=== PATIENT | male | born 1960 | race Caucasian/White ===

== ENCOUNTER → 2018-12-12 | Outpatient (CLI) | payer OTHER, SELFPAY ==
[2018-12-12 14:39] VITALS: BMI 39.9
--- NOTE | 2018-12-12 14:56 | RAD_ITS ---
STUDY: X-RAY - LEFT FOOT CLINICAL: Posterior ankle pain. TECHNIQUE: 3 view(s) of the foot. COMPARISON: None. FINDINGS: There are small posterior and plantar calcaneal enthesophytes. Normal talus and tarsal bones. Normal visualized subtalar, talonavicular, calcaneocuboid, tarsal and tarsometatarsal articulations. There is enthesopathy at the base of the fifth metatarsal. There is mild joint space narrowing of the metatarsophalangeal joint of the great toe. Normal tibial and fibular sesamoid bones. Normal interphalangeal joint of the great toe. Normal phalanges of the great toe. Normal second through fifth metatarsophalangeal joints. Normal interphalangeal joints and phalanges of the lesser toes. The soft tissue structures are unremarkable. RAD/Foot min 3 Views IMPRESSION: Mild arthrosis of the first metatarsophalangeal joint. Mild calcaneal enthesopathy. Enthesopathy at the base of the fifth metatarsal. Electronically Signed: Elmer Malcolm MD at 15:42 EDT Tel , Service support ,
== END | disposition home or self-care (01) ==
LOC: HPRAD 14:56
PROVIDERS: Family Provider Family Medicine; PCP Family Medicine; Referring Provider Orthopaedic Surgery; Visit Provider Orthopaedic Surgery
DX: M25.572 Pain in left ankle and joints of left foot (principal)
CPT/HCPCS: 73630

== ENCOUNTER 2019-11-02 12:43 | Emergency (ER) | payer OTHER, SELFPAY ==
[2018-12-12 14:39] VITALS: BMI 39.9
[2019-11-02 12:44] VITALS: BP 153/97; PULSE 84; RESP 20; TEMP 36.9; O2SAT 93; BMI 39.9
[2019-11-02] MEDS: 0.9% Normal Saline 1,000 ML 1000 ML IV (13:30)
[2019-11-02 13:40] LABS: Absolute Lymphocyte Count 1.92 X10^3/uL (0.83-4.51); Absolute Neutrophil Count 2.7 X10^3/uL (2.0-7.7); Basophil# 0.02 X10^3/uL; Basophil% 0.4 % (0-1); Eosinophil# 0.01 X10^3/uL; Eosinophils% 0.2 % (0-5); Hematocrit 51.4 % (40-54); Hemoglobin 16.9 g/dL (13.0-16.5); Lymphocyte # 1.92 X10^3/ul (4.0); Mean Corp Hgb Conc 32.9 g/dL (32-36); Mean Corpuscular Hgb 29.3 pg (27.0-32.0); Mean Corpuscular Volume 89.1 fL (80-94); Monocyte# 0.56 X10^3/uL; Monocyte% 10.8 % (0-10); NRBC Flagged by Analyzer 0 % (0-5); Neutrophil # 2.67 X10^3/uL (2.7-7.7); Neutrophil % 51.4 % (47-70); Platelet Count 109 K/mm3 (150-450); RBC Distribution Width CV 13.7 % (11.6-14.6); Red Blood Count 5.77 M/mm3 (4.6-6.2); White Blood Count 5.2 K/mm3 (4.4-11.0)
--- NOTE | 2019-11-02 13:40 | RAD_ITS ---
STUDY: X-RAY CHEST REASON FOR EXAM: Male, 59 years old. FEVER,COUGH,SOB, CHILLS AND BODY ACHES FOR PAST 7-8 DAYS TECHNIQUE: Single AP portable view of the chest. COMPARISON: None. FINDINGS: EKG electrodes are seen. Mild increased markings in the left infrahilar region suggestive of atelectasis and/or infiltrate. There is no demonstrated pleural abnormality. Normal size heart. Normal mediastinum and karla. Normal visualized pulmonary arteries. Normal visualized aortic arch and descending thoracic aorta. There are diffuse degenerative changes of the visualized thoracic spine. Normal visualized ribs, clavicles, and shoulders. There is no demonstrated abnormality of the visualized soft tissue structures of the upper abdomen. RAD/Chest 1 View (Portable) IMPRESSION: Increased markings in the left infrahilar region suggestive of atelectasis and/or early infiltrate Electronically Signed: Pete Rojo, at 13:53 EDT , Service support ,
[2019-11-02 13:56] LABS: ALB/GLOB Ratio 0.9 RATIO (0.9-2.4); AST(SGOT) 44 U/L (15-37); Alanine Aminotransfer ALT/SGPT 49 U/L (16-61); Albumin, Serum 3.4 g/dL (3.2-5.0); Alkaline Phosphatase 54 U/L (45-117); Anion Gap 4 (5-15); BUN 12 mg/dL (7-18); BUN/Creat Ratio 11.2 RATIO (10-20); Calcium,Total 8.7 mg/dL (8.5-10.1); Chloride 105 mmol/L (98-107); Creatinine, Serum 1.07 mg/dL (0.70-1.30); EST Glomerular Filtration Rate 75 mL/min (>60); Est Glom Filt Rate - Afr Amer 90 mL/min (>60); Estimated Creatinine Clearance 86.65 ml/min; Globulin 3.9 g/dL (2.2-4.2); Glucose 110 mg/dL (74-106); Potassium 3.3 mmol/L (3.5-5.1); Protein, Total 7.3 g/dL (6.4-8.2); Sodium Level 139 mmol/L (136-145)
[2019-11-02 14:04] LABS: Lactic Acid 0.9 mmol/L (0.4-1.9)
[2019-11-02 14:07] VITALS: BP 143/84; PULSE 71; RESP 18; TEMP 36.9; O2SAT 94
[2019-11-02 14:24] LABS: Bacteria 0 SEEN /hpf (None Seen); Mucous, Urine 0 SEEN /hpf (<or=2+); Red Blood Cells-Urine 0 SEEN /hpf (0-5); Squamous Epithelial Cells - UA 0 SEEN /hpf (0-5); White Blood Cells 0 SEEN /hpf (0-5)
[2019-11-02 14:33] LABS: Color, Urine Yellow (Yellow); Glucose, Dipstick Normal (Normal); Ketone-Dipstick Negative (Negative); Leukocyte Esterase-Dipstick Negative /ul (Negative); Nitrite-Dipstick Negative (Negative); Occult Blood-Urine 10 /ul (Negative); Protein-Dipstick 30 mg/dl (Negative); Urine Bilirubin Dipstick Negative (Negative); Urine Clarity Sl. Cloudy (Clear); Urine Urobilinogen 1 mg/dl (Normal); Urine pH 6.5 (5.0 - 8.0)
--- NOTE | 2019-11-02 14:39 | ED.VISSUMM ---
- ER Visit Summary Date of Service: 11/02/19 Chief Complaint: Cough History of Present Illness: The patient is a [address] garay. He reports he has a cough began 8 days ago. It is productive a little bit of sputum. No blood in his sputum. He has had chills, but no fever. No sore throat, chest pain, or difficulty breathing. He does complain of myalgias and a minimal headache. Patient reports that his who is a executive secretary social welfare has been doing everything by telehealth had similar symptoms, but hers have completely resolved and she is back to work. He states that he just cannot kick this. He denies any known exposure to coronavirus. They have been self isolating. Physical Examination: Vitals: Stable. Afebrile. General: Well-nourished and well-developed. Head: Normocephalic atraumatic. Neck: Supple, no lymphadenopathy. No JVD. Nontender. Cardiovascular: Regular rate and rhythm. No murmurs. Respiratory: No respiratory distress. Clear to auscultation bilaterally. Abdominal: Soft, nontender, nondistended, normal bowel sounds. No guarding, rebound, or peritoneal signs. Back: Nontender. Extremities: Nontender, no edema. Skin: Normal color, no rash. Neurologic: Alert and oriented ?3. Cranial nerves II through XII are intact. Normal strength and sensation. Psych: Normal affect. Test Results: CBC shows a hemoglobin of 16.9 with platelets 109 and monocytes of 11. Chem-7 shows a potassium 3.3 and glucose 110. LFTs show an AST of 44. Lactic acid is 0.9. Chest x-ray is read by the radiologist as increased markings left infrahilar region atelectasis and/or infiltrate. Clinically I do not think that the patient has pneumonia. UA is normal. Emergency Department Course and Treatment: Patient is resting comfortably. Treatment Plan: I discussed the findings with the patient. He does have a prolonged cough. He is given a first dose of Zithromax and will be discharged on Zithromax. He does understand that the test for COVID is not back yet and there is the possibility that this is what he has. He is instructed to continue to quarantine. Follow-up with his primary care physician in 10 days if not improving. Return to the emergency department for any worsening symptoms. Disposition: To home in improved and stable condition. Impression: 1. URI. This note was generated with [employer] dictation software. It may contain incorrect words, spelling, and punctuation that were not noted in review of the chart prior to signing ED Disposition - Plan for ED Patient: Instructions: ED Upper Resp Infec Abx Tx Prescriptions: Azithromycin [Zithromax] 250 mg PO DAILY #4 tablet Referrals: Raj Waldron MD [Primary Care Provider] - 10-14 Days if not better
[2019-11-02 15:28] VITALS: BP 142/98; PULSE 68; RESP 16; O2SAT 98
[2019-11-02] MEDS: Azithromycin 250 MG Tablet 500 MG PO (15:29)
== END 2019-11-02 15:36 | disposition home or self-care (01) ==
LOC: ED 13:48
PROVIDERS: Emergency Provider Emergency Medicine; PCP Family Medicine
DX: J06.9 Acute upper respiratory infection, unspecified (principal)
CPT/HCPCS: 71045; 80053; 81001; 83605; 85025; 87635; 96360; 99285; G2023; J7030; A4216; U0003

== ENCOUNTER 2020-05-25 11:38 | Emergency (ER) | payer OTHER, SELFPAY ==
[2020-05-25 11:39] VITALS: BP 166/118; PULSE 69; RESP 18; TEMP 35.3; O2SAT 92; BMI 41.9
--- NOTE | 2020-05-25 12:10 | EKG12_ITS ---
Test Reason : Blood Pressure : / mmHG Vent. Rate : 066 BPM Atrial Rate : 066 BPM P-R Int : 156 ms QRS Dur : 092 ms QT Int : 444 ms P-R-T Axes : -04 047 066 degrees QTc Int : 465 ms Normal sinus rhythm Normal ECG Confirmed by ULISSES MENDEZ, CARON ([id number]), editor producer CLIVE RIOS ([id number]) on 05/26/2020 10:34:39 AM Referred By: JORGE Confirmed By:CARON GTZ MD
--- NOTE | 2020-05-25 12:10 | RAD_ITS ---
STUDY: X-RAY CHEST REASON FOR EXAM: Male, 60 years old. syncope TECHNIQUE: Frontal view of the chest COMPARISON: 02 November 2019 FINDINGS: The lungs are clear and expanded. There is no demonstrated pleural abnormality. Normal size heart. Normal mediastinum and karla. Normal visualized pulmonary arteries. Normal visualized aortic arch and descending thoracic aorta. Normal visualized thoracic spine. Normal visualized ribs, clavicles, and shoulders. There is no demonstrated abnormality of the visualized soft tissue structures of the upper abdomen. RAD/Chest 1 View (Portable) IMPRESSION: Normal x-ray examination of the chest. Electronically Signed: Yoshi Luis, at 13:25 EST Tel , Service support ,
--- NOTE | 2020-05-25 12:10 | RAD_ITS ---
STUDY: X-RAY - LEFT CLAVICLE REASON FOR EXAM: Male, 60 years old. fall, pain TECHNIQUE: 2 view(s) of the clavicle. COMPARISON: None. FINDINGS: Normal clavicle. Normal acromioclavicular articulation. Normal visualized sternoclavicular articulation. Normal visualized pulmonary apex. RAD/Clavicle IMPRESSION: Normal x-ray examination of the clavicle. Electronically Signed: Yoshi Luis, at 13:24 EST Tel , Service support ,
--- NOTE | 2020-05-25 12:26 | ED.DCSUM_ITS ---
- ER Visit Summary Date of Service: 05/25/20 Chief Complaint: Fall History of Present Illness: The patient is a 60 M presents after a fall that occurred today. Patient states he was in the shower when he fell. Patient states he thinks he may have passed out. Patient states he has a history of cardiogenic syncope but has not had any episodes in the past 3 to 4 years. Patient states he was out for approximately 2 to 3 seconds. Patient states he felt lightheaded prior to falling. Patient denies any chest pain or shortness of breath. Patient states his pain is mostly over his left clavicle and shoulder area. Patient describes a sharp and throbbing. Patient states it is worse with movement especially with adduction. Patient denies any paresthesias or weakness. Physical Examination: Vital signs are stable except for an elevated blood pressure of 166/118. Patient is afebrile. Patient is in no acute distress. Oral mucosa is pink and moist. Neck is supple. Trachea is midline. There is no JVD. Heart was regular rate and rhythm. Lungs are clear and equal bilatera lly. There is good respiratory effort. Abdomen is soft. Bowel sounds are normal. There is no tenderness. Cranial nerves II through XII are intact. There are no focal motor or sensory deficits noted. Musculoskeletal exam reveals tenderness over the left clavicle and acromioclavicular joint. There is no obvious deformity noted. Range of motion was limited in all motions of the left shoulder secondary to pain. Radial pulses are equal bilaterally. Test Results: EKG was obtained. On my interpretation, there is a normal sinus rhythm with a rate of 66. There are no acute ST or T wave changes. Portable 1 view chest x-ray was obtained. On my interpretation, lung sage are clear. There is normal cardiac silhouette. Bony thorax is normal. There is no acute process noted. Radiologist also interpreted the x-ray and agrees. X-rays of the left clavicle were obtained. There are 2 views. On my interpretation, there is no acute fracture noted. There is no fracture of the visualized portion of the proximal humerus. There is no dislocation of the shoulder. There is no pneumothorax. Radiologist also interpreted the x-ray and agrees. CBC shows a hemoglobin of 18.1. Comprehensive metabolic profile was essentially within normal limits. Troponin was normal. CTA of the chest was obtained. There is no evidence of large central pulmonary embolism or aortic dissection. It was a suboptimal study however. This was interpreted by the radiologist and reviewed by myself. Emergency Department Course and Treatment: Patient was feeling better on reevaluation. Patient was advised of his findings. Patient was instructed to use ice to his left shoulder. Patient was instructed to take Tylenol or ibuprofen as needed for pain. Patient was instructed to follow-up with his primary care physician in 5 to 7 days. Patient understood and was agreeable with the plan. All questions were answered. Disposition: Discharge home Impression: 1. Left shoulder contusion 2. Syncope This note was generated with [email or web address] dictation software. It may contain incorrect words, spelling, and punctuation that were not noted in review of the chart prior to signing ED Disposition - Plan for ED Patient: Disposition: Home or Assisted Living Diagnosis: Contusion of left shoulder, initial encounter, Syncope and collapse Instructions: ED Fainting, Uncertain Cause, ED Contusion, Upper Extremity Referrals: Raj Waldron MD [Primary Care Provider] - 5-7 Days
[2020-05-25 12:59] LABS: Absolute Lymphocyte Count 2.14 X10^3/uL (0.83-4.51); Absolute Neutrophil Count 4.2 X10^3/uL (2.0-7.7); Basophil# 0.04 X10^3/uL; Basophil% 0.6 % (0-1); Eosinophils% 1.4 % (0-5); Hematocrit 53.2 % (40-54); Lymphocyte # 2.14 X10^3/ul (4.0); Lymphocyte % 30.5 % (19-41); Mean Corpuscular Hgb 29.9 pg (27.0-32.0); Mean Corpuscular Volume 87.9 fL (80-94); Mean Platelet Vol. 11.7 fl (6.2-12.0); Monocyte# 0.53 X10^3/uL; Monocyte% 7.5 % (0-10); NRBC Flagged by Analyzer 0 % (0-5); Neutrophil # 4.19 X10^3/uL (2.7-7.7); Neutrophil % 59.7 % (47-70); Platelet Count 162 K/mm3 (150-450); RBC Distribution Width CV 13.1 % (11.6-14.6); RBC Distribution Width SD 42.4 fl (35.1-43.9); Red Blood Count 6.05 M/mm3 (4.6-6.2)
[2020-05-25 13:00] LABS: Hemoglobin 18.1 g/dL (13.0-16.5)
[2020-05-25 13:05] LABS: ALB/GLOB Ratio 1.1 RATIO (0.9-2.4); AST(SGOT) 29 U/L (15-37); Alanine Aminotransfer ALT/SGPT 66 U/L (16-61); Albumin, Serum 4.1 g/dL (3.2-5.0); Alkaline Phosphatase 54 U/L (45-117); Anion Gap 6 (5-15); BUN 16 mg/dL (7-18); BUN/Creat Ratio 17.8 RATIO (10-20); Chloride 108 mmol/L (98-107); EST Glomerular Filtration Rate 91 mL/min (>60); Est Glom Filt Rate - Afr Amer 110 mL/min (>60); Estimated Creatinine Clearance 101.71 ml/min; Globulin 3.6 g/dL (2.2-4.2); Glucose 93 mg/dL (74-106); Protein, Total 7.7 g/dL (6.4-8.2); Sodium Level 139 mmol/L (136-145)
--- NOTE | 2020-05-25 13:16 | CT_ITS ---
STUDY: CTA CHEST REASON FOR EXAM: Male, 60 years old. Syncope RADIATION DOSAGE (If Supplied By Facility): CTDIvol = ( 14.82 ) mGy, DLP = ( 733.60 ) mGycm TECHNIQUE: The examination was performed with the intravenous administration of 100mL Isovue 370. Post-processing of the angiographic images was performed, with multiplanar reformation and 3D reconstruction. Individualized dose optimization techniques were used for this CT. COMPARISON: None. FINDINGS: Examination is technically limited due to poor contrast enhancement in the pulmonary arteries with low attenuation contrast and patient''s large body habitus resulting in increased image noise and decreased resolution. Central large pulmonary arteries are assessable while segmental arteries are not. There is no large central pulmonary embolism. Pulmonary artery and aorta are normal caliber. Lungs have mosaic attenuation, likely atelectasis.. There is no pneumothorax, pulmonary edema or pleural effusions. Mediastinal contents are normal. Osseous structures are intact. Abdominal structures are unremarkable. CT/CTA Chest W/WO Contrast IMPRESSION: 1. Technically suboptimal study. 2. No large central pulmonary embolism. 3. Refer to ultrasonography of the lower extremity venous system for further risk stratification. 4. Presumed atelectasis. Electronically Signed: Yoshi Luis, at 14:31 EST Tel , Service support ,
[2020-05-25 15:28] VITALS: BP 144/93; PULSE 71; RESP 14; TEMP 36.6; O2SAT 99
[2020-05-26 13:22] LABS: Pathologist Review Reviewed
== END 2020-05-25 15:29 | disposition home or self-care (01) ==
PROVIDERS: Emergency Provider Emergency Medicine; PCP Family Medicine
DX: S40.012A Contusion of left shoulder, initial encounter (principal); R55 Syncope and collapse; W18.2XXA Fall in (into) shower or empty bathtub, initial encounter; Y93.9 Activity, unspecified; Y92.9 Unspecified place or not applicable; E66.9 Obesity, unspecified
CPT/HCPCS: 71045; 71275; 73000; 80053; 84484; 85025; 93005; 99285; Q9967; A4216

== ENCOUNTER → 2023-02-11 | Outpatient (CLI) | payer OTHER, SELFPAY ==
[2023-02-11 15:08] LABS: Absolute Lymphocyte Count 2.58 X10^3/uL (0.83-4.51); Absolute Neutrophil Count 3.4 X10^3/uL (2.0-7.7); Basophil# 0.05 X10^3/uL; Basophil% 0.7 % (0-1); Eosinophil# 0.16 X10^3/uL; Eosinophils% 2.3 % (0-5); Hematocrit 55.4 % (40-54); Lymphocyte # 2.58 X10^3/ul (0.83-4.51); Lymphocyte % 37.9 % (19-41); Mean Corp Hgb Conc 32.7 g/dL (32-36); Mean Corpuscular Hgb 29.5 pg (27.0-32.0); Mean Corpuscular Volume 90.4 fL (80-94); Mean Platelet Vol. 12.2 fl (6.2-12.0); Monocyte# 0.64 X10^3/uL; Monocyte% 9.4 % (0-10); NRBC Flagged by Analyzer 0 % (0-5); Neutrophil # 3.37 X10^3/uL (2.7-7.7); Neutrophil % 49.6 % (47-70); Platelet Count 178 K/mm3 (150-450); RBC Distribution Width CV 13.3 % (11.6-14.6); RBC Distribution Width SD 44.4 fl (35.1-43.9); Red Blood Count 6.13 M/mm3 (4.6-6.2); White Blood Count 6.8 K/mm3 (4.4-11.0)
[2023-02-11 15:15] LABS: Hemoglobin 18.1 g/dL (13.0-16.5)
[2023-02-11 15:31] LABS: Vitamin B12 573 pg/mL (211-911); Vitamin D,25 Hydroxy 19.3 ng/mL
[2023-02-11 15:34] LABS: ALB/GLOB Ratio 1.1 RATIO (0.9-2.4); AST(SGOT) 21 U/L (15-37); Alanine Aminotransfer ALT/SGPT 44 U/L (16-61); Alkaline Phosphatase 48 U/L (45-117); Anion Gap 4 (5-15); BUN 10 mg/dL (7-18); BUN/Creat Ratio 9.6 RATIO (10-20); Calcium,Total 9.2 mg/dL (8.5-10.1); Chloride 106 mmol/L (98-107); Cholesterol 259 mg/dL (200); Creatinine, Serum 1.04 mg/dL (0.70-1.30); EST Glomerular Filtration Rate 76 mL/min (>60); Est Glom Filt Rate - Afr Amer 92 mL/min (>60); Globulin 3.8 g/dL (2.2-4.2); Glucose 84 mg/dL (74-106); High Density Lipoprotein 44 mg/dL; Protein, Total 7.8 g/dL (6.4-8.2); Sodium Level 138 mmol/L (136-145); T4 Free Direct 0.82 ng/dL (0.76-1.46); Thyroid Stim Hormone (TSH) 2.47 uIU/mL (0.358-3.74); Triglycerides 114 mg/dL; Very Low Density Lipoprotein 23 mg/dL (5-40)
[2023-02-11 17:04] LABS: Ferritin 147 ng/mL (26-388); Iron 138 ug/dL (65-175); Iron Binding Capacity,Total 391 ug/dL (250-450); PERCENT IRON SATURATION 35.3 % (15.0-55.0)
[2023-02-13 08:07] LABS: Transferrin 277 mg/dL (177-329)
[2023-02-14 13:15] LABS: Pathologist Review Reviewed
== END | disposition home or self-care (01) ==
LOC: MFPLAB 12:01
PROVIDERS: PCP Family Medicine; Visit Provider Family Medicine
DX: D75.1 Secondary polycythemia (principal)
CPT/HCPCS: 36415; 80053; 80061; 82306; 82607; 82728; 83540; 83550; 84439; 84443; 84466; 85025

== ENCOUNTER 2023-02-24 08:17 | Emergency (ER) | payer OTHER, SELFPAY ==
[2023-02-24 08:19] VITALS: BP 171/97; PULSE 73; RESP 16; TEMP 36.6; O2SAT 99
--- NOTE | 2023-02-24 09:11 | VDLE_ITS ---
Reason For Study: pain Procedure LEFT This is a venous duplex using B-mode, color GSV is normal. flow and spectral Doppler. CFV is compressible, spontaneous, phasic, Exam performed portable in ED. competent, and demonstrates normal The exam was abbreviated due to the COVID 19 augmentation. protocol. FV is compressible, spontaneous, phasic, The exam was diagnostic. competent and demonstrates normal A preliminary report was called and/or faxed augmentation. to Dr. Ramirez. POP V is compressible, spontaneous, phasic, competent and demonstrates normal augmentation. T/P Trunk is compressible. PTV is compressible. LT PerV is compressible. VL/Venous Duplex US, Unilateral Interpretation Summary Deep veins of the left lower extremity are patent and compressible segmentally. There is no evidence of left lower extremity deep vein thrombosis. The left great saphenous vein marcelle ears patent and compressible segmentally. Ordering Physician: Uriel Ramirez Performed By: Hai Stone RVT
--- NOTE | 2023-02-24 09:20 | RAD_ITS ---
STUDY: X-RAY - LEFT KNEE REASON FOR EXAM: Male, 62 years old. Pain. TECHNIQUE: 4 views of the left knee. COMPARISON: None. FINDINGS: Normal visualized distal femur. Normal visualized proximal tibia and fibula. Normal proximal tibiofibular articulation. There is no demonstrated fracture. Normal medial femorotibial compartment. Normal lateral femorotibial compartment. Normal patellofemoral articulation. There is tiny osseous spurring at the superior and inferior poles of the patella. There is a small joint effusion. The soft tissue structures are unremarkable. RAD/Knee 4 or More Views IMPRESSION: Small joint effusion. No demonstrated fracture. Electronically Signed: Devin Jo MD at 9:37 EDT ,
--- NOTE | 2023-02-24 09:20 | EDS_ITS ---
HPI History of Present Illness Chief Complaint: Lower Extremity Injury Informant: patient and spouse/S.O. Narrative Narrative: Very pleasant 62-year-old male presenting to the emergency department with 1 week of posterior left knee pain. Patient states that he began to feel like he tweaked his knee last Tuesday. It is progressively gotten worse. He notes the pain to be in the lateral and posterior. He states he is never felt any swelling or redness. He denies any known trauma. Last night getting into bed he felt like something may have popped. He felt some discomfort in the very proximal calf. He denies any prior knee surgery or trauma. He has not had pain in the knee recently. Has not had any difficulty with stairs until the last couple of days when it is painful even to bear any weight. Has been using some crutches [facility] Home Medications azithromycin 250 mg tablet 250 mg PO DAILY #4 tabs 11/02/19 [Rx Last Taken Unknown] Allergy/AdvReac Type Severity Reaction Status Date / Time No Known Allergies Allergy Verified 02/24/23 08:19 Social History Smoking Status: Never smoker ROS ROS ED Constitutional Constitutional ED: Denies chills or weight loss Eyes Eyes: Denies change in vision or diplopia ENT ENT ED: Denies ear pain, rhinorrhea or sore throat Cardiovascular Cardiovascular: Denies chest pain, orthopnea, palpitations or racing heartbeat Respiratory/Chest Respiratory/Chest: Denies cough, dyspnea or orthopnea Gastrointestinal Gastrointestinal: Denies abdominal pain, diarrhea, nausea or vomiting Genitourinary Genitourinary ED: Denies dysuria, hematuria or urinary frequency Musculoskeletal Musculoskeletal: Reports other Details: See HPI ; Denies arthralgias, back pain or myalgias Integumentary Denies abscess, Abrasions or rash Neurologic Neurologic: Denies headache(s) or weakness Psychiatric Psychiatric: Denies anxiety, depression, suicidal ideation or suicidal thoughts Endocrine Endocrinology: Denies polydipsia, polyphagia or polyuria Allergic/Immunologic Allergic/Immunologic ED: Denies mouth swelling, tongue swelling or urticaria EXAM Physical Exam Const Vital Signs: 02/24/23 08:19 Temperature 97.8 F Temperature Source Temporal Pulse Rate 73 Respiratory Rate 16 Blood Pressure 171/97 H Blood Pressure Mean 121 Pulse Ox 99 Oxygen Delivery Method Room Air Positive well nourished and well developed General Appearance ED: well developed HEENT Reports normocephalic, head/scalp atraumatic and moist mucous membranes Eyes PERRL and EOMs intact bilaterally Neck no lymphadenopathy, supple and no JVD Resp normal respiratory effort and clear to auscultation bilaterally Cardio regular rate, regular rhythm and no murmurs GI normal to inspection, nondistended, normoactive bowel sounds and non-tender Palpation: soft Back/Spine no CVA tenderness and normal ROM Extremity normal to inspection Extremity Narrative: Left knee shows no obvious effusion or significant swelling. Extensor mechanism is intact. Ligaments appear stable on direct testing. No pain upon palpation. I do not appreciate any cords or palpable masses posteriorly. There is no joint line tenderness. General Extremety ED: Negative for edema General Extremity: Negative for edema Neuro oriented x3 and CN's II-XII intact bilaterally Sensorium / Orientation: alert Motor Exam: strength 5/5 throughout Psych mental status grossly normal Mood & Affect: Negative for depressed or tearful Skin no rashes or lesions noted and no wounds MDM MDM MDM Narrative Medical decision making narrative: My independent interpretation of the 4 view left knee x-ray is small joint effusion arthritic change is noted. There is no appreciable fracture. There is no chondrocalcinosis chondrocalcinosis chondrocalcinosis. Duplex ultrasound of the left lower extremity was obtained. This was negative for DVT. There is no obvious Soriano's cyst noted after discussion with the radio tower technician. At this point patient should David wrap ice and scheduled anti-inflammatories. Wo uld recommend following up either with primary care with orthopedics. Radiography Diagnostic Testing: Clinical Impression(s) from Imaging Studies Knee X-Ray 02/24/23 09:20 IMPRESSION: Small joint effusion. No demonstrated fracture. Electronically Signed: Devin Jo MD at 9:37 EDT , Discharge Plan Triage Chief Complaint: Lower Extremity Injury ED Provider: Uriel Ramirez Dx/Rx/DC Orders Prescriptions: No Action azithromycin 250 MG tablet 250 mg PO DAILY Qty: 4 0RF Primary Care Provider: Nicholas Amos Referrals: Nicholas Amos MD [Primary Care Provider] -
== END 2023-02-24 10:35 | disposition home or self-care (01) ==
PROVIDERS: Emergency Provider Emergency Medicine; PCP Family Medicine; Visit Provider Emergency Medicine
DX: M25.562 Pain in left knee (principal)
CPT/HCPCS: 73564; 93971; 99282

== ENCOUNTER → 2023-04-06 | Outpatient (CLI) | payer OTHER, SELFPAY ==
--- NOTE | 2023-04-06 12:09 | US_ITS ---
EXAM: US SOFT TISSUES HEAD AND NECK, THYROID CLINICAL INDICATION: thyroid nodule TECHNIQUE: Greyscale and color doppler imaging was performed of the thyroid gland. COMPARISON: No relevant prior studies available. FINDINGS: LEFT THYROID LOBE: The left thyroid lobe measures 4.4 x 2.2 x 1.6 cm. Homogeneous echotexture with normal vascularity. No thyroid nodules are present. RIGHT THYROID LOBE: The right thyroid lobe measures 4.7 x 2.3 x 2.1 cm. 1. There is a 6 mm nodule in the mid right thyroid lobe. This nodule is spongiform. TI-RADS points: 0. TI-RADS category: TR1. This nodule is benign and no FNA or follow-up is necessary. 2. There is an 8 mm nodule in the inferior right thyroid lobe. This nodule is solid or almost completely solid, hypoechoic, [id number], smoothly marginated and contains no echogenic foci. TI-RADS points: 4. ISTHMUS: The thyroid isthmus measures 2.9 mm. No thyroid nodules are present. US/Thyroid IMPRESSION: 8 mm nodule in the inferior right thyroid lobe. This nodule is solid or almost completely solid, hypoechoic, [id number], smoothly marginated and contains no echogenic foci. TI-RADS points: 4. TI-RADS category: TR4. This nodule is moderately suspicious but no FNA or follow-up is necessary given the small size of this nodule. Electronically Signed: Peter Godwin DO at 23:50 EST ,
== END | disposition home or self-care (01) ==
PROVIDERS: PCP Family Medicine; Referring Provider Family Medicine; Visit Provider Family Medicine
DX: E04.1 Nontoxic single thyroid nodule (principal)
CPT/HCPCS: 76536

== ENCOUNTER → 2025-03-20 | Outpatient (CLI) | payer MEDICARE, OTHER, SELFPAY ==
[2025-03-20 09:16] LABS: Red Blood Cells-Urine 0 SEEN /hpf (0-5); Squamous Epithelial Cells - UA 0 SEEN /hpf (0-5)
[2025-03-20 10:25] LABS: Hematocrit 54.8 % (40-54); Immature Granulocytes Count 0.010 X10^3/uL (0.0-0.0); Mean Corp Hgb Conc 32.8 g/dL (32-36); Mean Corpuscular Volume 90.0 fL (80-94); Mean Platelet Vol. 11.9 fl (6.2-12.0); NRBC Flagged by Analyzer 0 % (0-5); Platelet Count 180 K/mm3 (150-450); RBC Distribution Width CV 13.7 % (11.6-14.6); RBC Distribution Width SD 45.5 fl (35.1-43.9); Red Blood Count 6.09 M/mm3 (4.6-6.2); White Blood Count 7.0 K/mm3 (4.4-11.0)
[2025-03-20 10:30] LABS: Hemoglobin 18.0 g/dL (13.0-16.5)
[2025-03-20 10:38] LABS: Color, Urine Yellow (Yellow); Glucose, Dipstick Normal (Normal); Ketone-Dipstick Negative (Negative); Leukocyte Esterase-Dipstick Negative /ul (Negative); Nitrite-Dipstick Negative (Negative); Occult Blood-Urine 10 /ul (Negative); Protein-Dipstick 30 mg/dl (Negative); Specific Gravity, Urine 1.020 (1.002-1.030); Urine Bilirubin Dipstick Negative (Negative)
[2025-03-20 11:02] LABS: Mucous, Urine 2+ /hpf (<or=2+)
[2025-03-20 13:33] LABS: AST(SGOT) 31 U/L (<=37); Alanine Aminotransfer ALT/SGPT 42 U/L (<=46); Albumin, Serum 4.5 g/dL (3.4-4.8); Alkaline Phosphatase 48 U/L (40-129); Anion Gap 11 (5-15); BUN 14 mg/dL (4-19); BUN/Creat Ratio 14.9 RATIO (10-20); Calcium,Total 9.8 mg/dL (7.6-11.0); Carbon Dioxide 24.3 mmol/L (21.0-32.0); Chloride 104 mmol/L (98-108); Cholesterol 269 mg/dL (<=200); Globulin 3.1 g/dL (2.2-4.2); Glucose 95 mg/dL (70-99); Low Density Lipoprotein Calc. 211 mg/dL; Magnesium 2.4 mg/dL (1.5-2.2); PSA,Total - Annual Screen 0.65 ng/mL (0.02-4.00); Potassium 4.0 mmol/L (3.3-5.1); Triglycerides 90 mg/dL; Very Low Density Lipoprotein 18 mg/dL (5-40); Vitamin D,25 Hydroxy 14.1 ng/mL (30-100); cholesterol:hdl ratio screen 6.37
[2025-03-21 13:11] LABS: Ferritin 238 ng/mL (37-417); Iron 132 ug/dL (65-175); Iron Binding Capacity,Total 330 ug/dL (250-450); Iron Binding Capacity,Unsat 198 ug/dL (228-428)
[2025-03-22 08:09] LABS: Transferrin 279 mg/dL (177-329)
== END | disposition home or self-care (01) ==
LOC: MFPLAB 09:07
PROVIDERS: PCP Family Medicine; Visit Provider Family Medicine
DX: Z00.00 Encounter for general adult medical examination without abnormal findings (principal); I10 Essential (primary) hypertension; E55.9 Vitamin D deficiency, unspecified; R71.8 Other abnormality of red blood cells; Z12.5 Encounter for screening for malignant neoplasm of prostate
CPT/HCPCS: 36415; 80053; 80061; 81001; 82306; 82728; 83540; 83550; 83735; 84153; 84443; 84466; 85025; G0103